=== PATIENT | female | born 1980 | race Caucasian/White ===

== ENCOUNTER 2021-08-03 15:43 | Emergency (ER) | payer SELFPAY ==
[~2021-08-03] VITALS: Ht 175.3 cm; Wt 83.9 kg
[~2021-08-03 15:43] MED LIST: ADDERALL; CIPRO; TOPAMAX; Z TOPAMAX; Z.0.ADDERALL 30 MG30
[2021-08-03] MEDS ORDERED: ONDANSETRON HCL 4 MG ORAL DISINTEGRATING TAB PO ONE (16:00)
[2021-08-03] MEDS ORDERED: CASIRIVIMAB/IMDEVIMAB 10 ML in SODIUM CHLORIDE 0.9% 100 ML IV ONE (16:00)
[2021-08-03] MEDS ORDERED: ONDANSETRON ODT4 MG PO (16:09)
== END 2021-08-03 16:50 | disposition home or self-care (01) ==
LOC: ER 15:56
DX: U07.1 COVID-19 (principal); R50.9 Fever, unspecified; R05.9 Cough, unspecified; B15.9 Hepatitis A without hepatic coma; F98.8 Other specified behavioral and emotional disorders with onset usually occurring in childhood and adolescence
CPT/HCPCS: 99283; J7050; Q0162